=== PATIENT | female | born 1965 | race Caucasian/White ===

== ENCOUNTER 2018-02-19 15:23 | Emergency (ER) | payer OTHER ==
[~2018-02-19] VITALS: Ht 170.2 cm; Wt 191.4 kg
[~2018-02-19 15:23] MED LIST: ACCUNEB SO1.25 MG/1; ACTEMRA162 MG/0.9 SQ; ALBUTEROL SULFAT4 MG PO; ALDACTONE100 MG PO; ALLOPURINOL 10100 M1 PO; ALLOPURINOL 30300 M2 PO; ALLOPURINOL 30300 M3 PO; AMBIEN 10 MG TA10 MG PO; AMILORIDE HCL-1 EACH PO; B-12500 MCG PO; B12INJ; CINNAMON500 MG PO; CRANBERRY400 MG PO; CRANBERRY500 M1 PO; CYMBALTA20 MG; CYMBALTA60 MG PO; DESYREL50 MG PO; DHEA25 MG PO; DILTIAZEM ER120 M1 PO; DUONEB 2.5-0.5 M3 ML INH; ENDOCET 10-3251 EACH PO; ESTRADIOL 1 MG T1 M1 PO; FERROUS SULFAT325 M1 PO; FISH OIL 1,2001 EAC4 PO; FLONASE16 GM NASAL; FLOVENT HFA12 GM NASAL; FOLIC ACID 40400 MCG PO; FOLIC ACID0.4 MG; FOLIC ACID1 MG PO; FUROSEMIDE 40 M40 M1 PO; GLUCOPHAGE XR500 MG PO; GLUMETZA1000 PO; HUMALOG100 UNIT/1; HUMALOG100 UNIT/1 SUBQ; HUMIRA20 MG/0.4; HUMIRA40 MG/0.8 SUBQ; HUMULIN 50100 UNIT/1; HUMULIN N100 UNIT/1 SUBQ; HUMULINR100 SUBQ; HYDROCODON-ACE1 EAC5 PO; HYDROXYCHLOROQ200 M1 PO; IRON159 MG; IRON325 PO; K-DUR10 MEQ PO; K-SOL20 MEQ/15 PO; LASIX 10 MG/10 MG/M1; LASIX 20 MG TAB20 MG; LASIX 40 MG TAB40 M2 PO; LEVOTHROID88 MCG PO; LEVOTHYROXINE 0.1 MG PO; LEVOTHYROXINE0.2 M1; LOSARTAN POTASS25 MG PO; METHOTREXATE 22.5 M1 PO; METOLAZONE 2.52.5 M1; METOLAZONE 5 MG5 M1 PO; MIDAMOR 5MG TABL5 M1; MIDAMOR 5MG TABL5 M1 PO; MILK THISTLE1 GM PO; MILK THISTLE140 M1 PO; MULTIVITAMINS PO; MULTIVITAMINS1 EAC7 PO; NABUMETONE 500500 M1; NABUMETONE 750750 M1 PO; NEURONTIN 300300 M1 PO; NEURONTIN600 MG PO; NITROQUICK0.4 MG SUBLING; NITROSTAT0.4 M1 SL; NORVASC10 MG; NOVOLIN N100 UNIT/3 SUBQ; OMEPRAZOLE 20 M20 M1 PO; ONDANSETRON HCL4 M2 PO; OXYCODON-ACETA1 EAC1; OXYCONTIN10 M1 PO; PHENERGAN-CODE120 ML PO; PILOCARPINE HC7.5 MG PO; POTASSIUM CITR10 ME1 PO; POTASSIUM CITRATE PO; PREDNISONE 20 M20 M1 PO; PREDNISONE 5 MG5 M1 PO; PRILOSEC 10MG C10 MG PO; PRILOSEC2.5 MG; PROAIR HFA8.5 GM; PROAIR HFA8.5 GM INH; PROVERA2.5 MG PO; REGLAN 10 MG TA10 MG PO; SILVADENE20 GM; SLOW-MAG64 MG PO; SPIRONOLACTONE100 M3 PO; SSD CREAM 1% 5050 GM TOP; TIROSINT88 MCG PO; TIZANIDINE HCL2 M1 PO; TIZANIDINE HCL4 MG PO; TOPAMAX50 MG PO; TRAZODONE 150150 M1 PO; TRAZODONE HCL100 MG PO; VICODIN 5-5001 EACH; VICTOZA0.6 MG/0.1; VICTOZA0.6 MG/0.1 SUBQ; VITAMIN B122500 MCG PO; VITAMIN C1000 MG PO; VITAMIN D-32000 UNIT PO; VITAMIN D35000 UNI1 PO; ZINC CHELATE50 MG PO; ZINC10 MG PO; ZOFRAN ODT4 MG PO; ZPAK PO
[2018-02-19 18:45] VITALS: BP 133/76
== END 2018-02-19 17:45 | disposition home or self-care (01) ==
LOC: ER 15:23
DX: S93.402A Sprain of unspecified ligament of left ankle, initial encounter (principal); E03.9 Hypothyroidism, unspecified; M19.90 Unspecified osteoarthritis, unspecified site; J45.909 Unspecified asthma, uncomplicated; E11.9 Type 2 diabetes mellitus without complications; K21.9 Gastro-esophageal reflux disease without esophagitis; Z88.1 Allergy status to other antibiotic agents; W19.XXXA Unspecified fall, initial encounter; Y93.89 Activity, other specified; Y92.89 Other specified places as the place of occurrence of the external cause; Y99.8 Other external cause status

== ENCOUNTER → 2020-09-08 | Outpatient (CLI) | payer OTHER | LOC: PT 14:01 | PROVIDERS: ATTEND Surgery | DX: R53.1 Weakness (principal); M25.561 Pain in right knee; M25.562 Pain in left knee; R26.89 Other abnormalities of gait and mobility; M25.571 Pain in right ankle and joints of right foot; M25.572 Pain in left ankle and joints of left foot; M06.9 Rheumatoid arthritis, unspecified; M19.90 Unspecified osteoarthritis, unspecified site; J44.9 Chronic obstructive pulmonary disease, unspecified; E11.22 Type 2 diabetes mellitus with diabetic chronic kidney disease; N18.2 Chronic kidney disease, stage 2 (mild); M10.9 Gout, unspecified ==

== ENCOUNTER → 2021-02-12 | Outpatient (CLI) | payer OTHER ==
[~2021-02-12] MED LIST changes: -ALLOPURINOL 30300 M2 PO; +ERYTHROMYCIN250 M1 PO; +FOSAMAX 70 MG T70 MG PO; +FUROSEMIDE 20 M20 M1 PO; +IPRAT-ALBUT 0.5-3 ML INH; +LEVO-T200 MCG PO; +MEDROXYPROGEST2.5 MG PO; -MILK THISTLE140 M1 PO; +MILK THISTLE140 M2 PO; +MULTI VITAMIN1 EACH PO; +NOVOLOG FL100 UNIT/M SUBQ; +OMEPRAZOLE40 MG PO; +OXYCODONE HCL E20 MG PO; +PILOCARPINE HCL5 M1 PO; +PRAVASTATIN SOD10 MG PO; +REGLAN 5 MG TAB5 MG PO; +RELISTOR8 MG/0.4 M; +TRESIBA FL200 UNIT/1 SUBQ; +XANAX 0.25 MG0.25 MG PO; +ZANAFLEX4 M2; +ZOLPIDEM TARTRA10 MG PO; +ZYLOPRIM300 MG PO; +[UNRECOGNIZED DRUG - REMARK] PO
== END ==
LOC: LAB 12:43
PROVIDERS: ATTEND Surgery
DX: Z01.812 Encounter for preprocedural laboratory examination (principal); Z20.822 Contact with and (suspected) exposure to COVID-19